=== PATIENT | female | born 1985 | race American Indian/Alaskan Native ===

== ENCOUNTER 2017-09-18 13:46 | Emergency (ER) | payer MEDICAID ==
[2017-09-18 14:58] LABS: Basophils % (Auto) 0.3 % (0.0-1.8); Eosinophils % (Auto) 0.3 % (0.0-4.3); Hematocrit 42.5 % (30.3-42.9); Hemoglobin 14.1 gm/dl (10.1-14.3); Lymphocytes # (Auto) 2.4 K/mm3 (1.2-5.4); Lymphocytes % (Auto) 24.3 % (13.4-35.0); Mean Corpuscular HGB Conc 33 % (30-34); Mean Corpuscular Hemoglobin 28 pg (28-32); Mean Corpuscular Volume 86 fl (79-97); Monocytes # (Auto) 0.7 K/mm3 (0.0-0.8); Platelet Count 272 K/mm3 (140-440); Red Blood Count 4.95 M/mm3 (3.65-5.03); Red Cell Distribution Width 13.5 % (13.2-15.2)
[2017-09-18 15:07] LABS: BUN/Creatinine Ratio 20; Blood Urea Nitrogen 12 mg/dL (7-17); Calcium 9.2 mg/dL (8.4-10.2); Hemolysis Index 4
--- NOTE | 2017-09-18 16:26 | Emergency Department Report ---
HPI - General Chief Complaint: Psych Time Seen by Provider: 09/18/17 16:13 - HPI HPI: Room 11 The patient is a 32-year-old female presenting with a chief complaint of suicidal ideation. The patient states she's been suicidal for 1 month and approximately 2 weeks ago cut her right forearm tonight. The patient states today she came home find her significant other with another woman. The patient states she called a suicide hotline there were no help. The patient states she didn't use a knife to cut at her left wrist. Patient denies any other attempt on herself. The patient states she now feels "empty" and "apathetic." Location: Mental state Duration: One month Quality: Suicidal Severity: Severe Modifying factors: [see above] Context: [see above] Mode of transportation: [not driving] ED Past Medical Hx - Past Medical History Hx Arthritis: Yes (rheumatoid) Additional medical history: Hyperthyroidism - Surgical History Additional Surgical History: Bilateral knees - Family History Family history: no significant - Social History Smoking Status: Current Every Day Smoker (1 pack per day) Substance Use Type: None (denies illicit drug use) - Medications Home Medications: Home Medications Medication Instructions Recorded Confirmed Last Taken Type Etanercept [Enbrel] 50 mg SQ QMONTH 09/18/17 09/18/17 Unknown History ED Review of Systems ROS: Stated complaint: SUICIDAL/ IDEATIONS Other details as noted in HPI Eyes: denies: eye pain ENT: denies: throat pain Cardiovascular: denies: chest pain Gastrointestinal: denies: abdominal pain Genitourinary: denies: dysuria Musculoskeletal: arthralgia Neurological: denies: headache Psychiatric: suicidal thoughts Physical Exam - Physical Exam Vital Signs: Vital Signs 09/18/17 14:35 Temperature 99.4 F Pulse Rate 113 H Respiratory 16 Rate Blood Pressure 118/82 O2 Sat by Pulse 97 Oximetry Physical Exam: GENERAL: The patient is well-developed well-nourished female lying on stretcher not appearing to be in acute distress. [] HEENT: Normocephalic. Atraumatic. Extraocular motions are intact. Patient has moist mucous membranes. NECK: Supple. Trachea midline CHEST/LUNGS: Clear to auscultation. There is no respiratory distress noted. HEART/CARDIOVASCULAR: Regular. There is no tachycardia. There is no gallop rub or murmur. ABDOMEN: Abdomen is soft, nontender. Patient has normal bowel sounds. There is no abdominal distention. SKIN: There is no rash. There is no edema. There is no diaphoresis. Very superficial linear abrasions to bilateral anterior forearms NEURO: The patient is awake, alert, and oriented. The patient is cooperative. The patient has normal speech MUSCULOSKELETAL: There is no evidence of acute injury. ED Course Vital Signs 09/18/17 14:35 Temperature 99.4 F Pulse Rate 113 H Respiratory 16 Rate Blood Pressure 118/82 O2 Sat by Pulse 97 Oximetry ED Medical Decision Making - Lab Data Result diagrams: 09/18/17 14:44 09/18/17 14:44 Laboratory Tests 09/18/17 09/18/17 09/18/17 14:44 14:44 14:44 WBC RBC Hgb Hct MCV MCH MCHC RDW Plt Count Lymph % (Auto) [place] % (Auto) Eos % (Auto) Baso % (Auto) Lymph # [place] # Eos # Baso # Seg Neutrophils % Seg Neutrophils # Sodium 137 Potassium 4.0 Chloride 100.0 Carbon Dioxide 21 L Anion Gap 20 BUN 12 Creatinine 0.6 L Estimated GFR > 60 BUN/Creatinine Ratio 20 Glucose 112 H Calcium 9.2 HCG, Qual Urine Color Urine Turbidity Urine pH Ur Specific [place] Urine Protein Urine Glucose (UA) Urine Ketones Urine Blood Urine Nitrite Urine Bilirubin Urine Urobilinogen Ur Leukocyte Esterase Urine WBC (Auto) Urine RBC (Auto) U Epithel Cells (Auto) Urine Mucus Salicylates < 0.3 L Urine Opiates Screen Urine Methadone Screen Acetaminophen < 5.0 L Ur Barbiturates Screen Ur Phencyclidine Scrn Ur Amphetamines Screen U Benzodiazepines Scrn Urine Cocaine Screen U Marijuana (THC) Screen Drugs of Abuse Note Plasma/Serum Alcohol 09/18/17 09/18/17 09/18/17 14:44 14:44 14:44 WBC 10.0 RBC 4.95 Hgb 14.1 Hct 42.5 MCV 86 MCH 28 MCHC 33 RDW 13.5 Plt Count 272 Lymph % (Auto) 24.3 [place] % (Auto) 7.0 Eos % (Auto) 0.3 Baso % (Auto) 0.3 Lymph # 2.4 [place] # 0.7 Eos # 0.0 Baso # 0.0 Seg Neutrophils % 68.1 Seg Neutrophils # 6.8 Sodium Potassium Chloride Carbon Dioxide Anion Gap BUN Creatinine Estimated GFR BUN/Creatinine Ratio Glucose Calcium HCG, Qual Negative Urine Color Urine Turbidity Urine pH Ur Specific [place] Urine Protein Urine Glucose (UA) Urine Ketones Urine Blood Urine Nitrite Urine Bilirubin Urine Urobilinogen Ur Leukocyte Esterase Urine WBC (Auto) Urine RBC (Auto) U Epithel Cells (Auto) Urine Mucus Salicylates Urine Opiates Screen Urine Methadone Screen Acetaminophen Ur Barbiturates Screen Ur Phencyclidine Scrn Ur Amphetamines Screen U Benzodiazepines Scrn Urine Cocaine Screen U Marijuana (THC) Screen Drugs of Abuse Note Plasma/Serum Alcohol < 0.01 09/18/17 09/18/17 17:31 17:31 WBC RBC Hgb Hct MCV MCH MCHC RDW Plt Count Lymph % (Auto) [place] % (Auto) Eos % (Auto) Baso % (Auto) Lymph # [place] # Eos # Baso # Seg Neutrophils % Seg Neutrophils # Sodium Potassium Chloride Carbon Dioxide Anion Gap BUN Creatinine Estimated GFR BUN/Creatinine Ratio Glucose Calcium HCG, Qual Urine Color Yellow Urine Turbidity Clear Urine pH 5.0 Ur Specific [place] 1.024 Urine Protein <15 mg/dl Urine Glucose (UA) Neg Urine Ketones 80 Urine Blood Neg Urine Nitrite Neg Urine Bilirubin Neg Urine Urobilinogen < 2.0 Ur Leukocyte Esterase Sm Urine WBC (Auto) 4.0 Urine RBC (Auto) 1.0 U Epithel Cells (Auto) 25.0 H Urine Mucus 3+ Salicylates Urine Opiates Screen Presumptive negative Urine Methadone Screen Presumptive negative Acetaminophen Ur Barbiturates Screen Presumptive negative Ur Phencyclidine Scrn Presumptive negative Ur Amphetamines Screen Presumptive negative U Benzodiazepines Scrn Presumptive negative Urine Cocaine Screen Presumptive negative U Marijuana (THC) Screen Presumptive negative Drugs of Abuse Note Disclamer Plasma/Serum Alcohol - Differential Diagnosis suicidal ideation, self-harm Critical care attestation.: If time is entered above; I have spent that time in minutes in the direct care of this critically ill patient, excluding procedure time. ED Disposition Clinical Impression: Suicidal ideation, Self-inflicted laceration of wrist Disposition: [id number]/[id number] PSY HOSP/PSY UNIT Is pt being admited?: No Does the pt Need Aspirin: No Condition: Serious Referrals: PRIMARY CARE, [Primary Care Provider] - 3-5 Days Time of Disposition: 16:28 (awaiting placement)
[2017-09-18 17:47] LABS: Bilirubin,Urine NEG (Negative); Blood,Urine NEG (Negative); Color,Urine Yellow (Yellow); Mucus,Urine 3+ /HPF; Protein,Urine <15 mg/dL mg/dL (Negative); Urobilinogen,Urine < 2.0 mg/dL (<2.0)
[2017-09-18 17:56] LABS: Amphetamine Screen,Urine PRESUMPTIVE NEGATIVE; Benzodiazepines Screen,Urine PRESUMPTIVE NEGATIVE; Cannabinoid Screen,Urine PRESUMPTIVE NEGATIVE; Cocaine Screen,Urine PRESUMPTIVE NEGATIVE; Methadone Screen,Urine PRESUMPTIVE NEGATIVE; Opiate Screen,Urine PRESUMPTIVE NEGATIVE
--- NOTE | 2017-09-19 12:42 | Consultation ---
History of Present Illness - Reason for Consult Consult date: 09/19/17 Reason for consult: Mental Health Evaluation Requesting physician: YE MORRIS - Chief Complaint Chief complaint: "I had this energy" - History of Present Psychiatric Illness 32-year-old female presenting with a chief complaint of suicidal ideation. Today the patient is calm and cooperative during the assessment. She stated being in a "different type" of relationship with a [place], so it's depressing. She stated that she has a daughter that's not in her custody. Also, the patient stated that she have not worked for 3 yrs because of a medical issues with her knees. She was asked about being suicidal, she stated, "I don't know why I want to hurt myself sometimes." She stated having a "burst of energy" this weekend. She stated experiencing this type of energy several months ago. She stated that she cut her left FA to calm down. She stated she has cut herself in the past. She stated not sleeping for several hours on Tuesday and early Tuesday morning. She stated that her relationship issues maybe the cause of her mental state being where it is. She denies HI's, but would not confirm or deny SI's. She denies AVH's and a poor appetite. She denies recreational drug use and alcohol consumption (etoh). Medications and Allergies Allergies Allergy/AdvReac Type Severity Reaction Status Date / Time No Known Allergies Allergy Unverified 09/18/17 14:35 Home Medications Medication Instructions Recorded Confirmed Last Taken Type Etanercept [Enbrel] 50 mg SQ QMONTH 09/18/17 09/18/17 Unknown History Past psychiatric history - Past Medical History Past Medical History: hyperthyroidism, other (RA) Past Surgical History: Other (Knee Surgery bilaterally) - past Psychiatric treatment and history psychiatric treatment history: Denies a psy hx and a fam psy hx. - Social History Social history: lives with family Mental Status Exam - Vital signs Last Vital Signs Temp 98 F 09/19/17 08:01 Pulse 97 H 09/19/17 08:01 Resp 16 09/19/17 08:01 BP 107/70 09/19/17 08:01 Pulse Ox 98 09/19/17 08:01 - Exam Narrative exam: MSE: Appearance: calm, cooperative Behavior: regular eye contact Speech: regular rate and tone Mood: euphoric Affect: congruent to mood Thought Process: circumstantial Thought Content: denies HI's and AVH's, would not confirm or deny SI's Motor Activity: lying in bed Cognition: A/O x 3 Insight: variable Judgment: variable Results Result Diagrams: 09/18/17 14:44 09/18/17 14:44 Abnormal lab results 09/18/17 09/18/17 09/18/17 Range/Units 14:44 14:44 14:44 Carbon Dioxide 21 L (22-30) mmol/L Creatinine 0.6 L (0.7-1.2) mg/dL Glucose 112 H (65-100) mg/dL U Epithel Cells (Auto) (0-13.0) /HPF Salicylates < 0.3 L (2.8-20.0) mg/dL Acetaminophen < 5.0 L (10.0-30.0) ug/mL 09/18/17 Range/Units 17:31 Carbon Dioxide (22-30) mmol/L Creatinine (0.7-1.2) mg/dL Glucose (65-100) mg/dL U Epithel Cells (Auto) 25.0 H (0-13.0) /HPF Salicylates (2.8-20.0) mg/dL Acetaminophen (10.0-30.0) ug/mL All other labs normal. Assessment and Plan Assessment and plan: Impression: Unspecified Mood DO. Today the patient is calm and cooperative during the assessment. Superficial lacerations on her left inner FA. The patient would not confirm or deny SI's. TSH 0.005. DDx: R/O Bipolar DO, R/O MDD, R/O Personality DO Recommendation/Plan: Continue 1013, gather collateral information, and reassess in 24 hours to determine proper treatment and dispo.The medical staff informed about the patient's TSH level.
[2017-09-19] MEDS ORDERED: ATIVAN IM PRN (15:49)
[2017-09-19] MEDS: TAPAZOLE PO SCH (18:05)
[2017-09-20] MEDS: TAPAZOLE PO SCH (11:40)
--- NOTE | 2017-09-20 14:01 | Progress Note ---
Subjective - Reason for Consult Consult date: 09/20/17 Reason for consult: Psychiatry Follow-up - Chief Complaint Chief complaint: "I feel much better" 32-year-old female presenting with a chief complaint of suicidal ideation. Today the patient is calm and cooperative during the assessment. She stated not being compliant with her Methimazole for hyperthyroidism. She stated that she is now aware how important it is to take her medication. 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 She asked for a referral to see a therapist about her self injury hx. She denies SI/HI's and AVH's. She denies any side effects of her medication. Mental Status Exam - Vital signs Last Vital Signs Temp 99.4 F 09/20/17 07:15 Pulse 93 H 09/20/17 07:15 Resp 18 09/20/17 07:15 BP 116/68 09/20/17 07:15 Pulse Ox 99 09/20/17 07:15 - Exam Narrative exam: MSE: Appearance: calm, cooperative Behavior: regular eye contact Speech: regular rate and tone Mood: Affect: congruent to mood Thought Process: logical Thought Content: denies SI/HI's and AVH's Motor Activity: lying in bed Cognition: A/O x 3 Insight: appropriate Judgment: appropriate Assessment and Plan Impression: Unspecified Mood DO. Today the patient is calm and cooperative during the assessment. Superficial lacerations on her left inner FA. The patient would not confirm or deny SI's. TSH 0.005. Hx of self injury. DDx: R/O Bipolar DO, R/O MDD, R/O Personality DO Recommendation/Plan: Rescind 1013. The patient can follow up with [facility] for outpatient DBT Therapy.
--- NOTE | 2017-09-20 15:48 | Emergency Department Report ---
Blank Doc - Documentation Documentation: I was asked by the psychiatric team to prepare discharge paperwork as they have rescinded the 1013 this patient. Patient appears awake and alert and denies any suicidal thoughts at this time. She will be given a referral for the [facility] facility and encouraged to return with any thoughts of harming herself or others, or with any acute distress.
[2017-09-20 16:16] VITALS: BP 121/73
== END 2017-09-20 16:18 | disposition home or self-care (01) ==
LOC: ED 13:46 → EEVIPCON 13:46 → ED 09-20 16:18
DX: S61.511A Laceration without foreign body of right wrist, initial encounter (principal); R45.851 Suicidal ideations; M19.90 Unspecified osteoarthritis, unspecified site; F17.210 Nicotine dependence, cigarettes, uncomplicated; E05.90 Thyrotoxicosis, unspecified without thyrotoxic crisis or storm; X78.8XXA Intentional self-harm by other sharp object, initial encounter; Y93.89 Activity, other specified; Y99.8 Other external cause status; Y92.89 Other specified places as the place of occurrence of the external cause
CPT/HCPCS: 36415; 80048; 80307; 81001; 84439; 84443; 84703; 85025; 99284; G0480; 80320